=== PATIENT | male | born 1965 | race Caucasian/White ===

== ENCOUNTER 2021-05-11 08:12 | Observation (INO) | payer OTHER ==
[2021-05-11 09:40] LABS: BASO % 0.6 % (0-2.0); EOS % 5.2 % (0-4.5); HEMATOCRIT 45.3 % (35.4-49); HEMOGLOBIN 15.2 GM/dL (11.7-16.9); LYMPH % 32.7 % (8-40); MCH 28.1 pg (25.7-33.7); MCHC 33.5 g/dl (32.0-35.9); MEAN CELL VOLUME 83.9 fl (80-96); MEAN PLT VOLUME 10.8 fl (7.5-11.1); MONO % 4.9 % (3.8-10.2); NEUT % 56.6 % (42.8-82.8); PLATELET COUNT 209 10^3/uL (134-434); WHITE BLOOD COUNT 4.3 K/mm3 (4.0-10.0)
[2021-05-11 10:09] LABS: CHLORIDE 106 mmol/L (98-107); SODIUM 139 mmol/L (136-145)
[2021-05-11 10:12] LABS: ALBUMIN 3.6 g/dl (3.4-5.0); ANION GAP 5 MMOL/L (8-16); BLOOD UREA NITROGEN 13.9 mg/dL (7-18); CALCIUM 8.8 mg/dL (8.5-10.1); CO2 28 mmol/L (21-32); GLUCOSE,RANDOM 135 mg/dL (74-106)
[2021-05-11 10:15] LABS: CREATININE 1.1 mg/dL (0.55-1.3); SGOT/AST 26 U/L (15-37); SGPT/ALT 40 U/L (13-61)
[2021-05-11 10:17] LABS: TOT PROT 7.3 g/dl (6.4-8.2)
[2021-05-11 10:18] LABS: ALK PHOS 113 U/L (45-117)
[2021-05-11 10:50] LABS: BILIRUBIN,TOTAL 0.3 mg/dL (0.2-1)
[2021-05-11 17:52] VITALS: BMI 35.6
[2021-05-11] MEDS ORDERED: LISINOPRIL 20 MG TABLET PO ONE (18:12)
[2021-05-11] MEDS ORDERED: levETIRAcetam 250 MG TABLET PO SCH (22:00)
[2021-05-12 06:09] VITALS: TEMP 98
[2021-05-12 08:38] VITALS: BP 122/78; PULSE 97
[2021-05-12] MEDS ORDERED: PT OWN MED DRAWER 7, Y5N ONE ×2 (09:24→09:55)
[2021-05-12] MEDS ORDERED: levETIRAcetam 500 MG TABLET (FP) PO SCH (09:31)
[2021-05-12] MEDS ORDERED: ENOXAPARIN NA (PORCINE) 40 MG/0.4 ML DISP.SYRIN SQ SCH (10:00)
[2021-05-12] MEDS ORDERED: FLUoxetine HCL 20 MG CAPSULE PO SCH (10:00)
== END 2021-05-12 14:03 | disposition left against medical advice (07) ==
LOC: JER 08:12 → JERBED 12:31 → J4W 17:27
PROVIDERS: ADMIT Internal Medicine; ATTEND Internal Medicine
DX: R55 Syncope and collapse (principal); R56.9 Unspecified convulsions; V47.4XXA Person boarding or alighting a car injured in collision with fixed or stationary object, initial encounter; Y93.89 Activity, other specified; Y92.410 Unspecified street and highway as the place of occurrence of the external cause; E66.9 Obesity, unspecified; Z68.35 Body mass index [BMI] 35.0-35.9, adult; F32.9 Major depressive disorder, single episode, unspecified; T43.226A Underdosing of selective serotonin reuptake inhibitors, initial encounter; R00.0 Tachycardia, unspecified; Z87.820 Personal history of traumatic brain injury; T14.8XXA Other injury of unspecified body region, initial encounter
CPT/HCPCS: 36415; 70450-TC; 71045-TC-FY; 80053; 80177; 82550; 82553; 84146; 84443; 84484; 85025; 93005; 93010; 99285-25; C9803; G0378; U0003; U0005